=== PATIENT | female | born 1995 | race Caucasian/White ===

== ENCOUNTER 2017-01-31 23:28 | Inpatient (IN) | payer BC, OTHER ==
[~2017-01-31] VITALS: Ht 160 cm; Wt 66.0 kg
[~2017-01-31 23:28] MED LIST: METH18 PO
[2017-01-31 23:31] VITALS: BP 130/79; PULSE 92; RESP 16; TEMP 98.4; O2SAT 98
[2017-02-01] MEDS ORDERED: BIRTHCONTROL PO (00:47)
[2017-02-01] MEDS ORDERED: LAMO25TA PO (00:47)
[2017-02-01] MEDS ORDERED: SPIR25TA PO (00:51)
--- NOTE | 2017-02-01 01:01 | PD ---
HPI Chief Complaint: Injury Time Seen by Provider: 00:59 Travel History International Travel<30 days: No Contact w/Intl Traveler<30days: No Traveled to known affect area: No History of Present Illness HPI Patient comes in complaining of right ankle pain over the medially aspect that occurred shortly prior to arrival. Patient states she tripped over skateboard causing her sit down on her right ankle. Patient reports having throbbing pain in that ankle since that radiates throughout her ankle. Pain is worse with trying to stand or walk. Patient tried putting ice on this prior to coming to the emergency department with no improvement in symptoms. Patient denies any numbness, tingling, or . PFSH Past Medical History ADHD: Yes Bipolar Disorder: Yes Immunizations Current: Yes ?: Not LMP: 01/25 : 0 Social History Alcohol Use: No Tobacco Use: No Substance Use: No (PT DENIES) Allergies-Medications (Allergen,Severity, Reaction): Coded Allergies: No Known Allergies (Verified , 11/14/15) Reported Meds & Prescriptions Reported Meds & Active Scripts Active Reported Spironolactone 25 Mg Tab 25 Mg PO DAILY [Birthcontrol] 1 Tab PO DAILY Lamotrigine 25 Mg Tab 25 Mg PO DAILY Review of Systems Except as stated in HPI: all other systems reviewed are Neg Physical Exam Narrative GENERAL: Well-developed, well nourished, in no acute distress, and non-ill appearing. SKIN: Focused skin assessment warm and dry. HEAD: Atraumatic. Normocephalic. EYES: Pupils equal and round. EOMI. No scleral icterus. No injection or drainage. ENT: No nasal bleeding or discharge. Mucous membranes pink and moist. NECK: Trachea midline. Supple. No nuclear rigidity. CARDIOVASCULAR: Dorsal pulses 2+, intact, and equal bilaterally. Capillary refill less than 2 seconds. RESPIRATORY: No accessory muscle use. No respiratory distress. MUSCULOSKELETAL: No obvious deformities. No clubbing. No cyanosis. No edema. Decreased range of motion right ankle secondary to pain. Ankle: Neagative anterior draw and Kellogg test. Negative Bon's sign. No laxity noted with passive inversion and eversion of BL ankles. Negative squeeze test. Pulses equal BL distal to injury. Capillary refill less than 2 seconds distal to injury and equal BL. Sensation equal BL 1st web space. FROM of toes distal to injury and equal BL. NV intact distal to injury and equal BL. Dorsal pulses equal BL. Patient reports tenderness to palpation throughout right ankle. NEUROLOGICAL: Awake and alert. No obvious cranial nerve deficits. Motor grossly within normal limits. Normal speech. PSYCHIATRIC: Appropriate mood and affect; insight and judgment normal. Data Data Last Documented VS Vital Signs Date Time Temp Pulse Resp B/P Pulse Ox O2 Delivery O2 Flow Rate FiO2 01/31/17 23:31 98.4 92 16 130/79 98 Room Air Orders Ankle, Complete ([id number]) (02/01/17 ) Ice/Cold Pack (02/01/17 00:45) Basic Metabolic Panel (Bmp) (02/01/17 01:19) Complete Blood Count With Diff (02/01/17 01:19) Prothrombin Time / Inr (Pt) (02/01/17 01:19) Act Partial Throm Time (Ptt) (02/01/17 01:19) Iv Access Insert/Monitor (02/01/17 01:19) Ecg Monitoring (02/01/17 01:19) Oximetry (02/01/17 01:19) Sodium Chloride 0.9% Flush (Ns Flush) (02/01/17 01:30) Chest, Single Ap (02/01/17 01:19) Ondansetron Inj (Zofran Inj) (02/01/17 01:30) Morphine Inj (Morphine Inj) (02/01/17 01:30) Splint Or Brace Apply/Monitor (02/01/17 01:19) Consult Orthopedic (02/01/17 ) (Hub Use Only)Inp Phy Cons/Ref (02/01/17 ) Admit Order (Ed Use Only) (02/01/17 01:40) Admit To Inpatient (02/01/17 ) Vital Signs (Adult) Q4H (02/01/17 01:40) Activity Bed Rest (02/01/17 01:40) Diet Npo (02/01/17 Breakfast) Sodium Chlor 0.9% 1000 Ml Inj (Ns 1000 M (02/01/17 01:40) Sodium Chloride 0.9% Flush (Ns Flush) (02/01/17 01:45) Sodium Chloride 0.9% Flush (Ns Flush) (02/01/17 09:00) Ondansetron Inj (Zofran Inj) (02/01/17 01:45) Comprehensive Metabolic Panel (02/02/17 06:00) Complete Blood Count With Diff (02/02/17 06:00) Acetaminophen (Tylenol) (02/01/17 01:45) Acetamin-Hydrocod 325-5 Mg (Boyds 5-325 (02/01/17 01:45) Morphine Inj (Morphine Inj) (02/01/17 01:45) Docusate Sodium-Senna (Lynne-Colace) (02/01/17 09:00) Magnesium Hydroxide Liq (Milk Of Magnesi (02/01/17 01:45) Sennosides (Senokot) (02/01/17 01:45) Bisacodyl Supp (Dulcolax Supp) (02/01/17 01:45) Lactulose Liq (Lactulose Liq) (02/01/17 01:45) Inpatient Certification (02/01/17 ) [facility] Medical Decision Making Medical Screen Exam Complete: Yes Emergency Medical Condition: Yes Interpretation(s) Right ankle x-ray read by the radiologist shows: There are acute minimally displaced fractures of the distal fibular metaphysis, medial malleolus, and posterior malleolus with associated soft tissue swelling. Differential Diagnosis Fracture, strain, contusion, dislocation, other Narrative Course Patient seen and examined. Initial radiological studies were obtained and reviewed. Discussed patient with orthopedics who recommends having the patient splinted and admitted for surgery in the morning. Nothing by mouth. Discussed patient with hospitalist, who is agreeable to admit the patient. Discussed all findings and plan care of patient is agreeable for admission. Preop labs were ordered. Patient remained stable throughout ED course. Physician Communication Physician Communication [phone] Richardson Lanier's PA, recommends ice cough with splint, nothing by mouth, surgery in the morning, and admit to hospitalist. [phone] Pompa, who is agreeable to admit the patient. Diagnosis Primary Impression: Closed right ankle fracture Qualified Code: S82.891A - Closed right ankle fracture, initial encounter Admitting Information Admitting Physician Requests: Admit Condition: Stable Eduardo Allen Feb 01, 2017 01:01
--- NOTE | 2017-02-01 01:05 | RADRPT ---
EXAM DATE/TIME: 02/01/2017 00:48 [facility] COMPARISON: No previous studies available for comparison. INDICATIONS : Pt fell over skateboard and landed with full body weight on right ankle. MEDICAL HISTORY : None. SURGICAL HISTORY : None. ENCOUNTER: Initial ACUITY: 1 day PAIN SCORE: 8/10 LOCATION: Right ankle FINDINGS: 3 views of the right ankle demonstrate a transverse displaced fracture through the medial malleolus w ith approximately 2 mm of displacement. There is an oblique fracture through the distal fibular metap hysis with fracture line extension medially to the level of the syndesmosis. There additionally is a minimally displaced posterior malleolus fracture. Lateral ankle soft tissue swelling is present. No r adiopaque foreign body is identified. CONCLUSION: There are acute minimally displaced fractures of the distal fibular metaphysis, medial malleolus, and posterior malleolus with associated soft tissue swelling. Dalton Dickson MD on February 01, 2017 at 1:01 Board Certified Radiologist. This report was verified electronically.
[2017-02-01] MEDS ORDERED: MORPHINE SULFATE 4 MG/ML INJ IV PUSH ONE (01:30)
[2017-02-01] MEDS ORDERED: ONDANSETRON HCL 4 MG/2 ML VIAL IV PUSH ONE ×2 (01:30→13:59)
[2017-02-01] MEDS ORDERED: SODIUM CHLORIDE 0.9% FLUSH 10 ML FLUSH IV FLUSH PRN ×2 (01:30→01:45)
[2017-02-01] MEDS ORDERED: SODIUM CHLOR 0.9% 1000 ML INJ 1,000 ML IV SCH (01:40)
[2017-02-01] MEDS ORDERED: LACTULOSE SYRUP 20 GM/30 ML CUP PO PRN (01:45)
[2017-02-01] MEDS ORDERED: ACETAMINOPHEN 325 MG TAB PO PRN (01:45)
[2017-02-01] MEDS ORDERED: MAGNESIUM HYDROXIDE SUSP 30 ML CUP PO PRN (01:45)
[2017-02-01] MEDS ORDERED: BISACODYL 10 MG SUPP RECTAL PRN (01:45)
[2017-02-01] MEDS ORDERED: ACETAMINOPHEN/HYDROcodone 325 MG/5 MG TAB PO PRN (01:45)
[2017-02-01] MEDS ORDERED: ONDANSETRON HCL 4 MG/2 ML VIAL IVP PRN ×2 (01:45→09:30)
[2017-02-01] MEDS ORDERED: MORPHINE SULFATE 4 MG/ML INJ IV PRN (01:45)
[2017-02-01] MEDS ORDERED: SENNOSIDES 8.6 MG TAB PO PRN (01:45)
[2017-02-01 01:50] LABS: AUTOMATED NEUTROPHIL # 5.6 TH/MM3 (1.8-7.7); BASOPHIL % 0.5 % (0.0-2.0); EOSINOPHIL # 0.2 TH/MM3 (0-0.4); EOSINOPHIL % 2.2 % (0.0-4.0); HEMATOCRIT 40.9 % (35.0-46.0); HEMO FLAGS DIFF FINAL; LYMPH % 26.7 % (9.0-44.0); LYMPHOCYTE # 2.4 TH/MM3 (1.0-4.8); MEAN CELL VOLUME 85.2 FL (80.0-100.0); MEAN CORPUSCULAR HEMOGLOBIN 28.2 PG (27.0-34.0); MEAN CORPUSCULAR HGB CONC 33.1 % (32.0-36.0); MONO % 8.7 % (0.0-8.0); NEUT % 61.9 % (16.0-70.0); PLATELET COUNT 307 TH/MM3 (150-450); RED BLOOD COUNT 4.79 MIL/MM3 (4.00-5.30); RED CELL DISTRIBUTION WIDTH 13.4 % (11.6-17.2)
--- NOTE | 2017-02-01 01:50 | RADRPT ---
EXAM DATE/TIME: 02/01/2017 01:38 [facility] COMPARISON: No previous studies available for comparison. INDICATIONS : Evaluate for pneumonia, pneumothorax, and communicable disease. MEDICAL HISTORY : None. SURGICAL HISTORY : None. ENCOUNTER: Initial ACUITY: 1 day PAIN SCORE: 0/10 LOCATION: Bilateral chest FINDINGS: Portable AP view of the chest demonstrates a normal-sized cardiac silhouette. No effusion, consolidat ion, or pneumothorax is visualized. Lungs are underinflated. The bones and soft tissues demonstrate n o acute abnormality. CONCLUSION: Underinflated examination with atelectasis at the lung bases. Otherwise, no acute finding is identifi ed. Dalton Dickson MD on February 01, 2017 at 1:48 Board Certified Radiologist. This report was verified electronically.
[2017-02-01 01:57] LABS: APTT (PATIENT) 30.8 SEC (24.3-30.1); INTERNATIONAL NORMALIZED RATIO 0.9 RATIO; PROTHROMBIN TIME - PATIENT 9.9 SEC (9.8-11.6)
[2017-02-01 02:14] VITALS: BP 109/57; PULSE 92; RESP 16; O2SAT 99
[2017-02-01 02:17] LABS: BICARBONATE 23.7 MEQ/L (21.0-32.0); POTASSIUM 4.2 MEQ/L (3.5-5.1)
--- NOTE | 2017-02-01 02:44 | HHI.HP ---
[facility] No Primary Care Physician Admission Diagnosis right ankle fracture Diagnoses: (1) Fall Diagnosis: Principal (2) Closed right ankle fracture Diagnosis: Principal (3) Bipolar disorder Diagnosis: Principal Travel History International Travel<30 Days: No Contact w/Intl Traveler <30 Da: No Traveled to Known Affected Are: No History of Present Illness This is a 21-year-old female with a PMH of Bipolar Disorder who is brought to the ER by EMS secondary to complaints of right ankle pain after a fall. Patient states she was walking and tripped over a skateboard, landed on her right ankle and had severe pain, unable to ambulate due to pain. On arrival, BP 130/79, HR 92, O2 sat 98% on RA, Afebrile. CBC unremarkable. Chemistry unremarkable. Ankle X-ray with minimally displaced fracture of distal fibular metaphysis, medial malleolus and posterior malleolus with soft tissue swelling. CXR with atelectasis, no acute findings. S/p splint in ER. Review of Systems Except as stated in HPI: all other systems reviewed are Neg ROS: 14 point review of systems otherwise negative. Past Family Social History Past Medical History PMH: Bipolar Disorder Past Surgical History PAST SURGICAL HISTORY: None Allergies: Coded Allergies: No Known Allergies (Verified , 11/14/15) Family History PAST FAMILY HISTORY: Reviewed. No h/o DM or CAD Social History PAST SOCIAL HISTORY: Negative for alcohol, tobacco or drugs. Physical Exam Vital Signs Vital Signs Date Time Temp Pulse Resp B/P Pulse Ox O2 Delivery O2 Flow Rate FiO2 02/01/17 02:14 92 16 109/57 99 Room Air 01/31/17 23:31 98.4 92 16 130/79 98 Room Air Physical Exam PE: GENERAL: Young female in no acute distress. Boyfriend and parents at bedside. HEENT: PERRLA, EOMI. No scleral icterus or conjunctival pallor. No lid lag or facial droop. CARDIOVASCULAR: Regular rate and rhythm. No obvious murmurs to auscultation. No chest tenderness to palpation. RESPIRATORY: No obvious rhonchi or wheezing. Clear to auscultation. Breath sounds equal bilaterally. GASTROINTESTINAL: Abdomen soft, non-tender, nondistended. BS normal. MUSCULOSKELETAL: Extremities without clubbing, cyanosis, or edema. No obvious deformities. RLE in splint. NEUROLOGICAL: Awake, alert and oriented x4. No focal neurologic deficits. Moving both upper and lower extremities spontaneously. Laboratory Laboratory Tests Test 02/01/17 01:36 White Blood Count 9.0 Red Blood Count 4.79 Hemoglobin 13.5 Hematocrit 40.9 Mean Corpuscular Volume 85.2 Mean Corpuscular Hemoglobin 28.2 Mean Corpuscular Hemoglobin 33.1 Concent Red Cell Distribution Width 13.4 Platelet Count 307 Mean Platelet Volume 9.2 Neutrophils (%) (Auto) 61.9 Lymphocytes (%) (Auto) 26.7 Monocytes (%) (Auto) 8.7 Eosinophils (%) (Auto) 2.2 Basophils (%) (Auto) 0.5 Neutrophils # (Auto) 5.6 Lymphocytes # (Auto) 2.4 Monocytes # (Auto) 0.8 Eosinophils # (Auto) 0.2 Basophils # (Auto) 0.0 CBC Comment DIFF FINAL Differential Comment Prothrombin Time 9.9 Prothromb Time International 0.9 Ratio Activated Partial 30.8 Thromboplast Time Sodium Level 139 Potassium Level 4.2 Chloride Level 105 Carbon Dioxide Level 23.7 Anion Gap 10 Blood Urea Nitrogen 9 Creatinine 0.62 Estimat Glomerular Filtration 124 Rate Random Glucose 92 Calcium Level 8.9 Result Diagram: 02/01/1713502/01/17135 Assessment and Plan Problem List: (1) Fall ICD Code: W19.XXXA Status: Acute (2) Closed right ankle fracture ICD Code: S82.891A Status: Acute (3) Bipolar disorder ICD Code: F31.9 Status: Acute Assessment and Plan A/P: 1. Fall: mechanical trip and fall over skateboard, no LOC or head trauma reported. 2. Right Ankle Fx: Ankle X-ray w/ acute minimally fractures of distal fibular metaphysis, medial malleolus and posterior malleolus, images reviewed by me. Dr. Davison consulted by ER physician, s/p splint in ER, plan for surgical intervention in am. NPO, IVF, analgesics/antiemetics as needed. Pre-op labs unremarkable. CXR w/ no acute findings, images reviewed by me. On Aldactone for treatment of Acne. 3. Bipolar Disorder: Controlled. Resume home medications. 4. DVT Prophylaxis: Anticoagulation post op per Ortho 5. Social work for d/c planning as needed. 6. Case discussed w/ ER physician at length. Physician Certification 2 Midnight Certification Type: Admission for Inpatient Services Order for Inpatient Services The services are ordered in accordance with Medicare regulations or non- Medicare payer requirements, as applicable. In the case of services not specified as inpatient-only, they are appropriately provided as inpatient services in accordance with the 2-midnight benchmark. Estimated LOS (days): 2 days is the estimated time the patient will need to remain in the hospital, assuming treatment plan goals are met and no additional complications. Post-Hospital Plan: Not yet determined Problem Qualifiers (1) Closed right ankle fracture: Qualified Code: S82.891A - Closed right ankle fracture, initial encounter Kecia Pompa MD Feb 01, 2017 02:44
[2017-02-01 03:30] VITALS: BP 113/64; PULSE 74; RESP 18; TEMP 97.9; O2SAT 97
[2017-02-01] MEDS ORDERED: SODIUM CHLORID 0.9% 500 ML IV PRN (03:45)
[2017-02-01] MEDS ORDERED: INSULIN HUMAN REGULAR 1,000 UNITS/10 ML VIAL SQ PRN (03:45)
[2017-02-01] MEDS ORDERED: POVIDONE IODINE 5% (ANTISEPSIS KIT) 4 APPLICATIONS EACH NARE PRN (03:45)
[2017-02-01] MEDS ORDERED: METOPROLOL TARTRATE 25 MG TAB PO PRN (03:45)
[2017-02-01] MEDS ORDERED: CHLORHEXIDINE GLUCONATE 2 % 1 PACK (2 CLOTHS) TOPICAL PRN (03:45)
[2017-02-01] MEDS ORDERED: LACTATED RINGER'S 1000 ML IV PRN (03:45)
[2017-02-01 06:45] VITALS: BP 118/78; PULSE 88; RESP 17; TEMP 98; O2SAT 99
--- NOTE | 2017-02-01 07:00 | PD.ORT.PN ---
Subjective Subjective Remarks s/p fall while at [employer] right ankle pain. no other complaints. Objective Vitals Vital Signs Date Time Temp Pulse Resp B/P Pulse Ox O2 Delivery O2 Flow Rate FiO2 02/01/17 02:14 92 16 109/57 99 Room Air 01/31/17 23:31 98.4 92 16 130/79 98 Room Air Result Diagram: 02/01/17 0136 02/01/17 0136 Other Results Laboratory Tests Test 02/01/17 01:36 Prothrombin Time 9.9 SEC (9.8-11.6) Prothromb Time International 0.9 RATIO Ratio Imaging Last 24 hours Impressions Chest X-Ray 02/01/17 0119 Signed Impressions: Service Date/Time: Wednesday, February 01, 2017 01:38 - CONCLUSION: Underinflated examination with atelectasis at the lung bases. Otherwise, no acute finding is identified. Dalton Dickson MD Ankle X-Ray 02/01/17 0000 Signed Impressions: Service Date/Time: Wednesday, February 01, 2017 00:48 - CONCLUSION: There are acute minimally displaced fractures of the distal fibular metaphysis, medial malleolus, and posterior malleolus with associated soft tissue swelling. Dalton Dickson MD Objective Remarks RLE: +short leg splint. intact. NVI Assessment & Plan Assessment and Plan 1) Right Ankle Fx -npo -surgery this AM -consents Yannick Schreiber Feb 01, 2017 07:00
[2017-02-01] MEDS ORDERED: WALKER/ADULT/FO1 MIS (07:02)
[2017-02-01] MEDS ORDERED: HYDR-3580 PO (07:02)
[2017-02-01] MEDS ORDERED: DEXAMETHASONE SOD PHOS 4 MG/ML VIAL ONE (07:10)
[2017-02-01] MEDS ORDERED: ACETAMINOPHEN 1000 MG/100 ML VIAL IV ONE (07:10)
[2017-02-01] MEDS ORDERED: FAMOTIDINE 20 MG/2 ML VIAL ONE (07:10)
[2017-02-01] MEDS ORDERED: GENTAMICIN SULFATE 80 MG/2 ML VIAL ONE (07:45)
--- NOTE | 2017-02-01 08:10 | MB ---
cc: CARMINA BAIN CAMILLE MD DATE OF CONSULTATION: 02/01/2017 REASON FOR CONSULTATION Right ankle fracture. CONSULTING PHYSICIAN Dr. Pompa HISTORY OF PRESENT ILLNESS Singh is a 21-year-old female who was walking and tripped over a skateboard. She landed awkward on her right ankle. She had immediate right ankle pain. She was unable to stand or ambulate. She was brought to the emergency room where x-rays revealed a displaced right ankle trimalleolar fracture. She is currently awake on the orthopedic floor. Her only complaint is the right ankle. She denies dizziness, syncope or loss of consciousness. Pain is worse with movement or weightbearing. PAST MEDICAL HISTORY ILLNESSES Bipolar disorder. SURGERIES None. ALLERGIES None. MEDICATIONS Please see EMR for complete list of inpatient medications. FAMILY HISTORY Noncontributory. SOCIAL HISTORY The patient denies alcohol, tobacco or drug use. REVIEW OF SYSTEMS The patient denies headache, visual changes, neck pain, chest pain, shortness of breath, abdominal pain, nausea, vomiting or recent weight loss. She complains of right ankle pain. PHYSICAL EXAMINATION GENERAL: The patient is a pleasant 21-year-old female in no acute distress. She is awake and alert. She is alert and oriented x3. VITAL SIGNS: Temperature 97.9, pulse 74, respirations 18, blood pressure 113/64. O2 sat 97% on room air. HEAD: The patient is normocephalic. Pupils are equal. NECK: Soft, nontender. Trachea is midline. ABDOMEN: Soft, nontender, nondistended. EXTREMITIES: Examination of bilateral upper extremities reveals no pain with shoulder, elbow or wrist motion. She has intact sensation in all fingers. She has good capillary refill in all fingers. Radial pulses are palpable. Art Supervisor strength is +5 bilaterally. Examination of left leg reveals no pain with hip, knee or ankle motion. Skin is intact. Dorsalis pedis pulse is palpable. Sensation is intact. Examination of right leg reveals no pain with hip or knee motion. She is diffusely tender around the ankle. There is mild swelling present. Skin is intact. She has good capillary refill in her toes. X-RAYS X-rays of the right ankle were reviewed. X-rays reveal a mildly displaced right ankle trimalleolar fracture. IMPRESSION Right ankle trimalleolar fracture. PLAN The treatment options were discussed with the patient. At this point I would recommend open reduction, internal fixation of right ankle. The risks of surgery include bleeding, infection, injuries to arteries, nerves and blood vessels, nonunion, malunion, painful hardware, as well as medical complications including blood clot, stroke, heart attack and . All questions were answered. I explained her that she will need to be non-weightbearing for at least six weeks. She will need to elevate her foot and keep her dressing clean and dry. All questions were answered. I will plan on surgery today. A mid-level provider in my office, nurse practitioner or PA, may see this patient on a follow-up basis and continue to implement the objective of this plan including: Starting or adjusting medications, injections of muscle, tendon, bursa or joints, cast application, orthotic or brace application, physical therapy, further radiographic studies including x-ray, MRI, CT, ultrasounds or bone scan, vascular studies, neurologic studies, or other specialist consultations, and proceeding with surgical management as appropriate. MD CHRISTOPHE Fernández/MAGDALENE /7:48 AM /8:05 AM
[2017-02-01] MEDS ORDERED: VANCOMYCIN HCL 1000 MG VIAL OTHER ONE (08:23)
[2017-02-01] MEDS ORDERED: ceFAZolin INJ 1,000 MG VIAL IV ONE (08:26)
[2017-02-01] MEDS ORDERED: DOCUSATE SODIUM 50 MG/SENNA 8.6 MG TAB PO SCH (09:00)
[2017-02-01] MEDS ORDERED: lamoTRIgine 25 MG TAB PO SCH (09:00)
[2017-02-01] MEDS ORDERED: SODIUM CHLORIDE 0.9% FLUSH 10 ML FLUSH IV FLUSH SCH (09:00)
[2017-02-01] MEDS ORDERED: SPIRONOLACTONE 25 MG TAB PO SCH (09:00)
[2017-02-01] MEDS ORDERED: GENTAMICIN SULFATE 80 MG/2 ML VIAL IRRIGATION ONE (09:02)
--- NOTE | 2017-02-01 09:13 | PD.OP ---
cc: Piyush Davison MD Operative Report Date of Surgery: Feb 01, 2017 Preoperative Diagnosis: Displaced right ankle trimalleolar fracture Postoperative Diagnosis: Procedure: Open reduction internal fixation right ankle Anesthesia: Gen. Surgeon: Piyush Davison Dynamo Tender(s): MINERVA Gray PA-C The surgical procedure was assisted by my physician customer support assistant. My P.A. presence was necessary throughout this case for the manipulation and positioning of the surgical extremity. My P.A. was assisting me throughout the duration of this procedure. The skill set of a physician customer support assistant was medically necessary to complete this procedure. During the surgical case the neurosurgical nurse practitioner was working at the back table and the physician customer support assistant was directly assisting me. Operation and Findings: Patient was seen and evaluated preoperatively and found to have a displaced right trimalleolar ankle fracture. Informed consent was obtained after a detailed discussion of risk and benefits of surgery. The operative site was marked. Patient was brought to the OR, placed on the OR table, and given IV sedation and general endotracheal anesthesia. IV antibiotics were given preoperatively. A timeout procedure was performed. The left leg was prepped with alcohol followed by Hibiclens and draped in the usual sterile fashion. Attention was turned towards the distal fibula. A four-inch incision was made over the distal fibula. The subcutaneous tissue was dissected with Bovie. The fracture site was visualized. The fracture site was cleaned with curets. The fracture was now reduced. The fracture keyed into anatomic alignment. K-wires were used to h old provisional fixation. A lag screw was placed to compress fracture. A Synthes plate was selected. The plate was provisionally held to bone with K-wires. 3.5 cortical screws were used to compress the plate to bone. Multiple screws were placed above and below the fracture. Next attention was turned towards the medial malleolus. The medial malleolus supposed through a 3 cm incision. Saphenous vein was retracted. Fracture was visualized. Fracture was cleaned with curettes. Fracture was now reduced and keyed into anatomic alignment. K wires were used to hold provisional fixation. 2 guidepins for the 4.0 cannulated screws were placed in a retrograde fashion across the fracture. Fluoroscopy was used to confirm guidepin placement. Cannulated drill was placed over the guidepin. 2 appropriate length screws were now placed. Good compression was applied. Fluoroscopy confirmed well aligned fracture with well-placed hardware. Next, attention was turned to the posterior malleolus and syndesmosis. The posterior malleolus fragment was visualized under fluoroscopy. The posterior malleolus had minimal articular surface and was in anatomic alignment. The syndesmosis was stressed. There was no widening of the syndesmosis with external rotation of the ankle. Incisions were thoroughly irrigated. The subcutaneous tissue was closed with 3-0 Vicryl and the skin was closed with 3-0 nylon. Sterile dressings were applied. A well molded well-padded splint was applied. The patient was transferred to Recovery in stable condition. Needle and sponge counts were correct. Piyush Davison MD Feb 01, 2017 09:13
[2017-02-01] MEDS ORDERED: MORPHINE SULFATE 4 MG/ML INJ IV PUSH PRN ×2 (09:15→09:30)
[2017-02-01] MEDS ORDERED: Post-op Orders (for Pharmacy) MISC XX ONE ×2 (09:15→09:30)
[2017-02-01] MEDS ORDERED: ACETAMINOPHEN/HYDROcodone 325 MG/7.5 MG TAB PO PRN ×3 (09:15→09:30)
[2017-02-01] MEDS ORDERED: ceFAZolin 2 GM PREMIX 50 ML IV SCH ×2 (09:30→17:00)
[2017-02-01] MEDS ORDERED: MIDAZOLAM HCL 2 MG/2 ML VIAL ONE (09:51)
[2017-02-01] MEDS ORDERED: fentaNYL CITRATE 250 MCG/5 ML AMP ONE (09:51)
--- NOTE | 2017-02-01 11:06 | HHI.DCPOC ---
Discharge Care Plan Diagnosis: (1) Closed right ankle fracture Your Health Problems Are: Difficulty with ADL Exercise Tolerance Goals to Promote Your Health * To prevent worsening of your condition and complications * To maintain your health at the optimal level Directions to Meet Your Goals Take your medications as prescribed Follow your dietary instruction Follow activity as directed Keep your appointments as scheduled Take your immunizations and boosters as scheduled If your symptoms worsen call your PCP, if no PCP go to Urgent Care Center or Emergency Room Smoking is Dangerous to Your Health. Avoid second hand smoke Call the 24-hour hour crisis hotline for domestic abuse at Santhosh Marquez MD Feb 01, 2017 11:06
--- NOTE | 2017-02-01 11:06 | HHI.FF ---
Face to Face Verification Diagnosis: (1) Closed right ankle fracture Physical Therapy Order: Evaluate and Treat, Improve ambulation, Strength and gait training I have seen patient Singh Davila on 02/01/17. My clinical findings support the need for the requested home health care services because: Ltd mobility - disease progression I certify that my clinical findings support that this patient is homebound because: Unsteady gait/balance Santhosh Marquez MD Feb 01, 2017 11:06
[2017-02-01 11:13] VITALS: BP 115/70; PULSE 91; RESP 18; TEMP 97.2; O2SAT 100
--- NOTE | 2017-02-01 12:51 | RADRPT ---
EXAM DATE/TIME: 02/01/2017 09:02 [facility] COMPARISON: No previous studies available for comparison. INDICATIONS : ORIF right ankle. MEDICAL HISTORY : None. SURGICAL HISTORY : None. ENCOUNTER: Subsequent ACUITY: 1 day PAIN SCORE: Non-responsive. LOCATION: Right ankle. FINDINGS: Two view examination was performed of the right ankle. ORIF right ankle The bony structures are in n ormal alignment. Anatomic alignment. Bony mineralization is normal. CONCLUSION: ORIF in anatomic alignment. Kendall Barroso MD FACR on February 01, 2017 at 12:49 Board Certified Radiologist. This report was verified electronically.
--- NOTE | 2017-02-01 13:23 | HHI.PR ---
Subjective Remarks Follow-up ankle injury. Patient tolerated procedure denies any pain at this time. She wants to go home. Discussed with RN and physical therapy. Also discussed with orthopedic surgery cleared for discharge pending PT eval Objective Vitals Vital Signs Date Time Temp Pulse Resp B/P Pulse Ox O2 Delivery O2 Flow Rate FiO2 02/01/17 11:13 97.2 91 18 115/70 100 02/01/17 10:45 88 15 106/66 97 Room Air 02/01/17 10:30 82 15 104/53 97 Room Air 02/01/17 10:15 86 15 108/53 95 Room Air 02/01/17 10:00 84 14 105/52 95 Room Air 02/01/17 09:45 97.7 87 14 97/48 100 Simple Mask 02/01/17 06:45 98.0 88 17 118/78 99 02/01/17 03:30 97.9 74 18 113/64 97 02/01/17 02:14 92 16 109/57 99 Room Air 01/31/17 23:31 98.4 92 16 130/79 98 Room Air I/O 01/31/17 01/31/17 01/31/17 02/01/17 02/01/17 02/01/17 07:00 15:00 23:00 07:00 15:00 23:00 Intake Total 273 ml Balance 273 ml Intake Oral 0 ml IV Total 273 ml # Voids 1 # Bowel Movements 0 Result Diagram: 02/01/17 0136 02/01/17 0136 Imaging Last Impressions Chest X-Ray 02/01/17 0119 Signed Impressions: Service Date/Time: Wednesday, February 01, 2017 01:38 - CONCLUSION: Underinflated examination with atelectasis at the lung bases. Otherwise, no acute finding is identified. Dalton Dickson MD Ankle X-Ray 02/01/17 0000 Signed Impressions: Service Date/Time: Wednesday, February 01, 2017 09:02 - CONCLUSION: ORIF in anatomic alignment. Kendall Barroso MD FACR Objective Remarks Well-developed, well-nourished in no distress Regular rate and rhythm Lungs are clear equal in expansion, Abdomen soft nontender Right lower extremity with dry clean dressing exposed toes able to wiggle not cyanotic Procedures ORIF right ankle A/P Problem List: (1) Fall ICD Code: W19.XXXA Status: Acute (2) Closed right ankle fracture ICD Code: S82.891A Status: Acute (3) Bipolar disorder ICD Code: F31.9 Status: Chronic Assessment and Plan 1. Fall: mechanical trip and fall over skateboard, no LOC or head trauma reported. Fall precautions. Ending PT eval 2. Right Ankle Fx: Ankle X-ray w/ acute minimally fractures of distal fibular metaphysis, medial malleolus and posterior malleolus, images reviewed by me. Status post ORIF. Stable continue postoperative care with PT, wound care, incentive spirometry and pain management with Lortab and morphine. 3. Bipolar Disorder: Controlled. Resume home medication Lamictal. 4. Aldactone for treatment of Acne. DVT Prophylaxis: Anticoagulation post op per Ortho Discharge Planning Patient significantly improved earlier than anticipated. Discharge patient to home with home health care PT pending PT eval Condition on discharge: Improved Regular Diet as tolerated Ad Alexandra activity, weightbearing status of right lower extremity per orthopedic surgery Rx written: Lortab patient counseled regarding narcotic Follow-up with primary care physician in one week Problem Qualifiers (1) Closed right ankle fracture: Qualified Code: S82.891A - Closed right ankle fracture, initial encounter Santhosh Marquez MD Feb 01, 2017 13:23
[2017-02-01] MEDS ORDERED: PROPOFOL 200 MG/20 ML AMP IV ONE (13:59)
[2017-02-01] MEDS ORDERED: PHENYLEPH/NS 1000 MCG/10 ML SYR IV ONE (13:59)
== END 2017-02-01 17:47 | disposition home or self-care (01) | DRG 494 ==
LOC: NEPD 23:28 → NEDA 02-01 01:42 → N06B 02-01 03:08
PROVIDERS: ADMIT Internal Medicine; ATTEND Internal Medicine
PROC: 0QSG04Z Reposition Right Tibia with Internal Fixation Device, Open Approach (ICD-10-PCS; principal; 2017-02-01 08:06)
DX: S82.851A Displaced trimalleolar fracture of right lower leg, initial encounter for closed fracture (principal); F31.9 Bipolar disorder, unspecified; W01.0XXA Fall on same level from slipping, tripping and stumbling without subsequent striking against object, initial encounter; Y92.9 Unspecified place or not applicable; F90.9 Attention-deficit hyperactivity disorder, unspecified type
CPT/HCPCS: 71010; 73600; 73610; 76000; 80048; 85025; 85610; 85730; 94150; C1713; J0131; J0690; J1100; J1580; J2250; J2270; J2370; J2405; J3010; J3370; J7030